=== PATIENT | male | born 1995 | race Asian ===

== ENCOUNTER 2016-06-08 01:11 | Emergency (ER) | payer OTHER ==
[~2016-06-08] VITALS: Ht 167.6 cm; Wt 62.1 kg
[2016-06-08 01:14] VITALS: TEMP 36.7; Ht 167.6 cm; Wt 62.1 kg
[2016-06-08] MEDS ORDERED: DiphenhydrAMINE HCL 50 MG/ML VIAL IV STA (01:39)
[2016-06-08] MEDS ORDERED: FAMOTIDINE 20MG/102 ML D5W IV STA (01:39)
[2016-06-08] MEDS ORDERED: DEXAMETHASONE SOD INJ 10 MG/ML VIAL IV ONE (01:45)
[2016-06-08 02:08] VITALS: O2SAT 100
--- NOTE | 2016-06-08 02:42 | EMERGENCY ROOM VISIT NOTE ---
History First contact with patient: 01:23 Chief Complaint: ALLERGIC REACTION Stated Complaint: ALLERGIC REACTION- REDNESS,ITCHY Nursing Triage Summary: Pt reports he used Neutrogena cream on his arms and chest at 6pm for the first time. Pt now having rash and itching. Pt used OTC cream for itching with some relief. Pt denies any SOB. Pt has generalized rash on arms and chest. History of Present Illness The patient is a 20 year old male who presents to the Emergency Room with complaints of allergic reaction after using Neutrogena cream. Patient plans of an itchy red rash since applying the cream. No other new foods soaps or detergents. Patient denies chest pain, dyspnea, fever, chills, facial swelling , tongue swelling. No history of allergic reactions in the past. He has not used this cream before. Review of Systems See HPI for pertinent positives & negatives. A total of 10 systems reviewed and were otherwise negative. Past Medical/Surgical History None Social History Smoking Status: Never Smoker Drug Use: none Occupation Status: employed, [employer] student Allergies Coded Allergies: Villalba Tar Extract (Verified Adverse Reaction, Intermediate, RASH, 06/08/16) Physical Exam Vital Signs Date Time Temp Pulse Resp B/P Pulse Ox O2 Delivery O2 Flow Rate FiO2 06/08/16 02:20 72 06/08/16 02:08 68 28 99 Room Air 06/08/16 02:08 100 Room Air 06/08/16 01:28 98 Room Air 06/08/16 01:14 36.7 69 20 123/75 98 Room Air Physical Exam VITALS: Vitals are noted on the nurse's note and reviewed by myself. Vital signs stable. GENERAL: Pleasant male, in no acute distress, nondiaphoretic, well-developed well-nourished. SKIN: Diffuse erythematous raised blanchable dermatitis most consistent with hives to bilateral arms The rest of the skin was without rashes, erythema, edema , or bruising. There is no tenting of the skin. Capillary reflex less than 2 seconds. HEAD: Normocephalic atraumatic. EARS: External auditory canals clear, tympanic membranes pearly dixon without erythema or effusion bilaterally. EYES: Pupils equal round and reactive to light and accommodation. Conjunctivae without injection, sclerae without icterus. Extraocular movements intact. NOSE: Patent, turbinates without inflammation or discharge. MOUTH: Mucous membranes moist. Pharynx without erythema or exudate. Uvula midline. Airway patent. Tongue does not deviate. NECK: Supple without nuchal rigidity. No lymphadenopathy. No thyromegaly. Cervical spine is nontender. No JVD. HEART: Regular rate and rhythm without murmurs gallops or rubs. LUNGS: Clear to auscultation bilaterally without wheezes, rales or rhonchi. No dullness to percussion. No retractions or accessory muscle use. ABDOMEN: Positive bowel sounds x 4. Normal tympanic percussion. Soft, nontender, without masses or organomegaly. Guidry sign negative. No guarding or rebound tenderness. MUSCULOSKELETAL: No muscle atrophy, erythema, or edema noted. NEURO: Patient was alert and oriented to person place and time. Normal sensation to light and sharp touch. No focal neurological deficits. Medical Decision & Procedures Medications Administered Medications (Trade) Dose Ordered Sig/Arnulfo Route Start Time Stop Time Status Last Admin Dose Admin Diphenhydramine HCl (Benadryl Inj) 50 mg NOW STAT IV 06/08/16 01:39 06/08/16 01:40 DC 06/08/16 02:02 50 MG Dexamethasone Sodium Phosphate (Decadron Inj) 10 mg NOW ONCE IV 06/08/16 01:45 06/08/16 01:46 DC 06/08/16 02:02 10 MG Famotidine (Pepcid 20mg/100 ml) 20 mg ONE STAT IV 06/08/16 01:39 06/08/16 01:40 DC 06/08/16 02:03 20 MG ED Course Prior records/ancillary studies reviewed. Triage Nursing notes reviewed. Additional history obtained from friends. The patient's history was concerning for possible allergic reaction. Differential diagnosis: Etiologies such as allergic reaction, anaphylaxis, urticaria, Downs-Alan syndrome, toxic epidermal necrolysis, erythema multiforme, cellulitis, as well as others were entertained. Physical examination: As above. ER treatment provided: Continuous cardiac monitoring Benadryl 50 mg IV Pepcid 20 mg IV Decadron 10 mg IV On reassessment the patient felt better. Diagnostic interpretation by me: Deferred It appears the patient had an allergic reaction. Patient was advised not to use Neutrogena cream again. He was advised to maryann this as an allergy. The above treatment did well to reverse the symptoms. After prolonged monitoring and frequent reassessments the patient did very well and symptoms resolved. The patient was counseled on the spectrum of this disease process and told to avoid potential triggers. I gave my usual and customary discussion regarding this issue. By the evaluation outlined above emergent etiologies such as recurring anaphylaxis, anaphylatic shock, airway compromise, Downs-Alan syndrome, toxic epidermal necrolysis, erythema multiforme, infectious etiologies, as well as others were deemed relatively unlikely. The pt informed about the findings as listed above. All questions were answered and pleased with the treatment. Return instructions were outlined and the patient was discharged in stable condition. Outpatient prescription management: prednisone Referral: The patient was referred back to primary care physician for follow-up in 2-3 days for a recheck of the current condition. Medical Decision As above Impression Primary Impression: Allergic reaction Departure Information Dispostion Home / Self-Care Condition GOOD Referrals [facility] (PCP) Patient Instructions My [facility] Additional Instructions DO NOT drive, drink alcohol, operate machinery, or perform dangerous activities today. You were given medications in the ER that can affect your ability to safely function or operate a vehicle. Prednisone 50mg: Once daily until the prescription is finished. It is best to take this earlier in the day as some patients note occasional difficulty falling asleep when taken in the late evening. Diphenhydramine(Benadryl) 25mg: use 25 to 50 mg every six hours for swelling, itching, or hives. This medication is sedating and will cause drowsiness. Avoid alcohol, operating machinery or dangerous equipment, working on ladders or roofs, DRIVING, or situations where being under the influence may be dangerous. Zantac 75: Take two pills twice a day along with Benadryl as needed for swelling , itching, or hives. Most people know this for its affect on the stomach, but it also acts similar to, but less potent than Benadryl for allergic reactions. Both the Benadryl and the Zantac are available [id number]. Continue current medications. Return to the emergency department for worsening of your rash, swelling of your face, lips, tongue, or throat, difficulty breathing, vomiting, or as needed. Follow-up with your primary care physician in 2 to 3 days for a recheck of your current condition. Problem Qualifiers Primary Impression: Allergic reaction Encounter type: initial encounter Qualified Codes: T78.40XA - Allergy, unspecified, initial encounter
[2016-06-08] MEDS ORDERED: PRED50TA PO (02:43)
[2016-06-08 02:56] VITALS: BP 95/58; PULSE 62; O2SAT 96
== END 2016-06-08 03:06 | disposition home or self-care (01) ==
LOC: C.EDB 01:12 → C.EDA 03:06
DX: T78.40XA Allergy, unspecified, initial encounter (principal); X58.XXXA Exposure to other specified factors, initial encounter

== ENCOUNTER 2017-05-19 10:48 | Emergency (ER) | payer OTHER ==
[~2017-05-19] VITALS: Ht 167.6 cm; Wt 63.0 kg
[2017-05-19 10:55] VITALS: TEMP 36.9; Ht 167.6 cm; Wt 63.0 kg
--- NOTE | 2017-05-19 11:09 | EMERGENCY ROOM VISIT NOTE ---
ED Visit Note First contact with patient: 11:01 CHIEF COMPLAINT: Cough HISTORY OF PRESENT ILLNESS: This 21-year-old male presents to ER with chief complaint of cough for the last 2 weeks. The patient also admits to runny nose but denies any ear pain, sore throat, fever. The patient states that he was seen at [facility] for his symptoms about a week ago and was told it was just a cold and was told to take NyQuil. The patient has been taking the NyQuil without any relief. The patient denies any new environmental exposures. He states his roommate is also sick. REVIEW OF SYSTEMS: 6 system review was performed and was negative unless stated otherwise in history of present illness. PMH: The patient is healthy; there is no significant medical or surgical history. SOCIAL HISTORY: Patient lives with roommates. The patient denies any tobacco or alcohol use. PHYSICAL EXAM: Vital Signs were reviewed: Reviewed Nurse's notes and agree. Oxygen saturation is 98 % on room air which is normal . GENERAL: 21-year-old male appears in no acute distress. MENTAL STATUS: Alert, oriented, coherent. EARS: Canals clear. TMs good light reflex, no erythema or fluid level noted. NOSE: Nasal mucosa with moderate erythema engorgement. PHARYNX: No erythema, no edema noted. No exudate noted. Airway is adequate. NECK: Supple, non-tender. No lymphadenopathy noted. LUNGS: Clear to auscultation without wheezes rales or rhonchi. CARDIAC: Regular rate and rhythm without murmur. SKIN: No rashes noted. DIAGNOSIS: Acute bronchitis DISCHARGE INSTRUCTIONS AND TREATMENT: Take Z-Jaron as prescribed. Tylenol as needed for fever and body aches. May continue NyQuil as needed for cough. If symptoms persist or worsen, follow-up with [facility]. Allergies Coded Allergies: Grant Tar Extract (Verified Adverse Reaction, Intermediate, RASH, 06/08/16) Vital Signs Date Time Temp Pulse Resp B/P (MAP) Pulse Ox O2 Delivery O2 Flow Rate FiO2 05/19/17 10:55 36.9 68 16 123/47 98 Room Air Departure Information Referrals No Doctor, Assigned (PCP) Patient Instructions My [facility]
[2017-05-19] MEDS ORDERED: AZITTAB PO (11:10)
[2017-05-19 11:16] VITALS: BP 123/47; PULSE 68; O2SAT 98
== END 2017-05-19 11:16 | disposition home or self-care (01) ==
LOC: C.EDB 10:50 → C.EDD 11:16
DX: J20.9 Acute bronchitis, unspecified (principal); Z91.048 Other nonmedicinal substance allergy status

== ENCOUNTER 2017-06-03 13:06 | Emergency (ER) | payer OTHER ==
[~2017-06-03] VITALS: Ht 160 cm; Wt 62.4 kg
[2017-06-03 13:08] VITALS: TEMP 36.7; Ht 160 cm; Wt 62.4 kg
--- NOTE | 2017-06-03 13:56 | EMERGENCY ROOM VISIT NOTE ---
History First contact with patient: 13:14 Chief Complaint: EYE PAIN Stated Complaint: EYE GOT HIT WITH A BALL IN [employer] CLASS History of Present Illness The patient is a 21 year old male who presents to the Emergency Room with complaints of "eye got hit with a ball in [employer] class". The patient states that earlier today he was participating in [employer] at [facility]. He states that during this class he was accidentally struck in the right eye with a racquetball. He states that he notes a minimal amount of blurred vision, but no vision change. No photophobia, vision loss, headache. He does note minimal bleeding from the nose which resolved quickly. He denies any pain with movements of the eye. He states he notices a small amount of redness on the white portion of his eye. He does wear contacts. He rates his overall discomfort as a 4/10. Review of Systems A complete 6-point Review of Systems was discussed with the patient, with pertinent positives and negatives listed in the History of Present Illness. All remaining Review of Systems questions can be considered negative unless otherwise specified. Past Medical/Surgical History No pertinent Family History No pertinent Social History Smoking Status: Never Smoker Drug Use: none Occupation Status: employed, [employer] student Current/Historical Medications No Active Prescriptions or Reported Meds Physical Exam Vital Signs Date Time Temp Pulse Resp B/P (MAP) Pulse Ox O2 Delivery O2 Flow Rate FiO2 06/03/17 14:05 60 20 120/68 98 06/03/17 13:08 36.7 70 17 117/69 95 Room Air Right Eye Acuity: 20/20 Left Eye Acuity: 20/20 Physical Exam VITAL SIGNS - Vital signs and nursing notes were reviewed. Stable. GENERAL - 21-year-old male appearing his stated age. Communicates well with provider and answers questions appropriately. HEAD - Normocephalic, Atraumatic. No Pereira's Sign or Raccoon's Eyes. No depressed skull fractures palpable. EYES - PERRL with EOMI bilaterally. Bulbar without noticeable foreign body or excoriations, however subconjunctival hemorrhage noted. Brief fundoscopic exam demonstrates no AV-nicking, cotton wool spots, or flame hemorrhages. Slit lamp examination performed as further described. There is no pain elicited with EOMs. Minimal tenderness at the inferior orbital region. No step-off. EARS - No deformities of external structures noted on gross examination bilaterally. Handle of malleus, umbo, cone of light, pars tensa/flaccid all easily visualized. NOSE - Midline and without cyanosis. Without discharge. MOUTH/OROPHARYNX - Without perioral cyanosis. Tongue midline with equal elevation of palate bilaterally. No tonsillar hypertrophy, erythema, or exudates noted. An Automated Tonometer was utilized to obtain bilateral orbital pressures. The pressures in the LEFT eye were found to be 12.5. The pressures in the RIGHT eye were found to be 17.5. Patient tolerated the procedure well and no complications were met. Slit Lamp Examination was performed of the R eye(s). Alcaine drops were applied to the affected eye(s) for proper anesthetization. The affected eye(s) were stained with Fluorescein stain to precipitate adequate visualization of any conjunctival/scleral excoriations or ulcers. The patient's face was comfortably rested on the chin guard of the slit lamp apparatus. The lights were dimmed and the affected eye(s) were thoroughly examined under microscopy using the blue light. No uptake was present in the R eye. Additionally, the eye(s) were examined under microscopy using the regular light. Close examination revealed small punctate conjunctival hemorrhage at the 4 to 5 o'clock position in the right eye. No hyphema. Negative Jhonatan sign. Patient tolerated the procedure well and no complications were met. Medical Decision & Procedures Medical Decision Patient was seen and evaluated as above. He presents to us status post trauma to the right eye via a racquetball. He is nontoxic on exam. Review was performed of nursing notes and vital signs. After obtaining a thorough history and physical examination the above work up was performed. There is a small subconjunctival hemorrhage noted. No step-off deformity. There is no pain elicited with EOMs. No evidence of any significant trauma. Pressures in the eye were normal. Slit lamp does not reveal anything other than what is visible without magnification and that is the small subconjunctival hemorrhage. No globe rupture. No evidence of an orbital floor fracture. I suspect he is likely experiencing soft tissue contusion of the right inferior eyelid, and a small subconjunctival hemorrhage. To be safe, I do recommend refraining from use of contact lenses for the next day as well as follow-up with ophthalmology for further evaluation or return here with worsening. I informed him that he may need to see his family doctor to have a referral for ophthalmology. In this case would be [facility]. The patient was educated upon management, had questions answered prior to discharge, and was discharged home in good condition. In the evaluation and treatment of this patient, the following differential diagnoses were considered: Corneal Abrasion, Conjunctivitis, Eye Contusion, Globe Injury, Orbital Floor Injury (Blowout Fracture), Corneal Ulcer, Keratitis , Herpes Zoster Opthalmic, Blepharitis, Orbital Cellulitis, Iritis, Scleritis/ Episcleritis, Uveitis, Temporal Arteritis, Subconjunctival Hemorrhage. Impression Primary Impression: Right eye trauma Additional Impression: Subconjunctival hemorrhage of right eye Departure Information Dispostion Home / Self-Care Condition GOOD Prescriptions No Active Prescriptions or Reported Meds Referrals [facility] (PCP) Eduar Alcala M.D. Patient Instructions My [facility] Additional Instructions You have been treated in the Emergency Department for an injury to your right eye. It appears that you have a small bleed underneath the layer of your eye which will go away over time. Please do not wear contacts until tomorrow. I do recommend following up with [facility] services and potentially ophthalmology, Dr. Alcala for further evaluation of your eye. Please call them as soon as possible. Avoid rubbing your eyes for the next few days as this can cause irritation. Wear sunglasses when outside to help minimize your pain. You should relax in a quiet, dark room to help minimize your symptoms. Return to the emergency department if you develop the following symptoms despite treatment course outlined above: blurry vision, loss of vision, fever, intractable pain, increased redness, swelling, or purulent discharge. Problem Qualifiers
[2017-06-03 14:05] VITALS: BP 120/68; PULSE 60; O2SAT 98
== END 2017-06-03 14:06 | disposition home or self-care (01) ==
LOC: C.EDB 13:09 → C.EDD 14:06
DX: S05.91XA Unspecified injury of right eye and orbit, initial encounter (principal); H11.31 Conjunctival hemorrhage, right eye; W21.09XA Struck by other hit or thrown ball, initial encounter